=== PATIENT | female | born 1950 | race Caucasian/White ===

== ENCOUNTER 2017-11-20 06:44 | Day surgery (SDC) | payer MEDICARE, BC ==
[2017-11-20 07:07] VITALS: O2SAT 100
--- NOTE | 2017-11-20 08:12 | CP.SDSHP ---
Same Day Surgery H & P - History Proposed Procedure: screening colonoscopy Pre-Op Diagnosis: screening for colon cancer - Previous Medical/Surgical History Cardiac: Hypertension, Other (hyperlipidemia) - Allergies Allergies: Allergies No Known Allergies Allergy (Unverified 11/20/17 06:57) - Physical Exam Vital Signs: Vital Signs 11/20/17 06:55 Temperature 97.9 F Pulse Rate 80 Respiratory 20 Rate Blood Pressure 155/85 H O2 Sat by Pulse 100 Oximetry Mental Status: Alert & Oriented x3 Neuro: WNL Heart: WNL Lungs: WNL GI: WNL - Impression Impression: screening for colon cancer Pt. Evaluated Today:Candidate for Anesthesia & Procedure: Yes - Date & Time Date: 11/20/17 Time: 08:12 Short Stay Discharge - Short Stay Discharge Admitting Diagnosis/Reason for Visit: SCREENING Disposition: HOME/ ROUTINE
[2017-11-20] MEDS ORDERED: Lactated Ringer's 500 ML IV ONE (08:19)
[2017-11-20] MEDS ORDERED: Lidocaine Hydrochloride 5 ML INJ ONE (08:20)
[2017-11-20] MEDS ORDERED: Propofol 10 mg/ml Inj (20 ML) ONE (08:20)
[2017-11-20 08:53] VITALS: TEMP 97.6
[2017-11-20 09:27] VITALS: BP 107/65; PULSE 79; RESP 18
== END 2017-11-20 09:40 | disposition home or self-care (01) ==
LOC: C.ENDO 06:44
PROVIDERS: ATTEND Internal Medicine Gastroenterology
DX: K57.90 Diverticulosis of intestine, part unspecified, without perforation or abscess without bleeding (principal); K64.1 Second degree hemorrhoids
CPT/HCPCS: 45378; J2704; J7120